=== PATIENT | female | born 1985 | race African-American/Black ===

== ENCOUNTER 2020-03-28 10:34 | Emergency (ER) | payer OTHER ==
[~2020-03-28] VITALS: Ht 167.6 cm; Wt 163.0 kg
[~2020-03-28 10:34] MED LIST: BACTRIM DS1 TAB PO; CIPROFLOXACN500 MG PO; DICLOFENAC SODI75 MG PO; FLAGYL500 MG PO; FLEXERIL OR; LORTAB 7.5-3251 TAB PO; MACRODANTIN100 MG OR; MOTRIN800 MG PO; NAPROSYN500 MG OR; NO HOME MEDS; PRENATAL1 TA1 PO; TORADOL OR; TRI-SPRINTEC OR; ULTRAM50 M1 PO; ZOFRAN ODT4 MG PO
[2020-03-28 11:20] LABS: URINE BILIRUBIN - DIPSTICK NEGATIVE (NEGATIVE); URINE BLOOD DIPSTICK NEGATIVE (NEGATIVE); URINE COLOR YELLOW; URINE GLUCOSE - DIPSTICK NEGATIVE (NEGATIVE); URINE KETONE NEGATIVE (NEGATIVE); URINE LEUK ESTERASE NEGATIVE (NEGATIVE); URINE NITRITE - DIPSTICK NEGATIVE (Negative); URINE PROTEIN - DIPSTICK NEGATIVE (NEG-TRACE); URINE UROBILINOGEN - DIPSTICK 0.2 E.U./dL (0.2)
[2020-03-28 11:38] LABS: HEMATOCRIT 36.3 % (37.0-47.0); HEMOGLOBIN 10.4 g/dl (12.0-16.0); IMMATURE GRANULOCYTES 0.2 % (0.0-5.0); MEAN CELL VOLUME 67.9 fL CALC (80.0-100.0); MEAN CORPUSCULAR HGB 19.4 pG CALC (26.0-32.0); MEAN CORPUSCULAR HGB CONC 28.7 g/dL CAL (32.0-36.0); NEUT# 4.81 thou/uL (2.00-7.15); RED BLOOD COUNT 5.35 mill/uL (4.20-5.60); RED CELL DISTRI WIDTH 19.9 % (11.5-15.5)
[2020-03-28 11:59] LABS: ALKALINE PHOSPHATASE 117 u/l (38-126); AMYLASE 60 u/l (30-110); BILIRUBIN, TOTAL 0.3 mg/dL (0.0-1.4); BUN 8 mg/dL (7-17); BUN/CREATININE RATIO 10 (12-20 (CALC)); CHLORIDE 106 mmol/l (95-108); CREATININE 0.8 mg/dL (0.5-1.0); GFR > 60 ML/MIN (>=60 (CALC)); GFR FOR AFR.AMER. > 60 ML/MIN (>=60 (CALC)); LIPASE 169 u/l (23-300); POTASSIUM 4.2 mmol/l (3.5-5.1); SGOT/AST 25 u/l (14-36); SODIUM 144 mmol/l (137-146); TOTAL PROTEIN 9.5 g/dL (6.3-8.2)
[2020-03-28 12:00] LABS: ALBUMIN 4.7 g/dL (3.2-5.0); ANION GAP 15 (6-22 (CALC)); CARBON DIOXIDE 27 mmol/l (22-30)
[2020-03-28] MEDS ORDERED: ONDANSETRON4 MG PO (13:19)
[2020-03-28 13:35] VITALS: BP 138/71
== END 2020-03-28 13:35 | disposition home or self-care (01) ==
LOC: ED 10:34
PROVIDERS: Emergency Medicine
DX: B34.9 Viral infection, unspecified (principal); Z20.822 Contact with and (suspected) exposure to COVID-19

== ENCOUNTER 2020-07-21 17:29 | Emergency (ER) | payer OTHER ==
[~2020-07-21 17:29] MED LIST changes: +ONDANSETRON4 MG PO
[2020-07-21 18:53] LABS: HEMATOCRIT 36.4 % (37.0-47.0); IMMATURE GRANULOCYTES 0.1 % (0.0-5.0); MEAN CELL VOLUME 74.3 fL CALC (80.0-100.0); MEAN CORPUSCULAR HGB 22.4 pG CALC (26.0-32.0); MEAN CORPUSCULAR HGB CONC 30.2 g/dL CAL (32.0-36.0); NEUT# 3.7 thou/uL (2.00-7.15); RED BLOOD COUNT 4.9 mill/uL (4.20-5.60); RED CELL DISTRI WIDTH 16.3 % (11.5-15.5)
[2020-07-21 19:05] LABS: ALBUMIN 4.3 g/dL (3.2-5.0); ALKALINE PHOSPHATASE 92 u/l (38-126); ANION GAP 11 (6-22 (CALC)); BILIRUBIN, TOTAL 0.4 mg/dL (0.0-1.4); BUN 9 mg/dL (7-17); BUN/CREATININE RATIO 10 (12-20 (CALC)); CARBON DIOXIDE 27 mmol/l (22-30); CHLORIDE 104 mmol/l (95-108); CREATININE 0.9 mg/dL (0.5-1.0); GFR > 60 ML/MIN (>=60 (CALC)); GFR FOR AFR.AMER. > 60 ML/MIN (>=60 (CALC)); POTASSIUM 3.6 mmol/l (3.5-5.1); SODIUM 138 mmol/l (137-146); TOTAL PROTEIN 8.4 g/dL (6.3-8.2)
[2020-07-21 19:06] LABS: SGOT/AST 169 u/l (14-36)
[2020-07-21 19:22] LABS: BETA-HCG, QUANT(RESULT NUMBER) <2 mIU/mL
[2020-07-21 20:44] LABS: URINE BILIRUBIN - DIPSTICK NEGATIVE (NEGATIVE); URINE BLOOD DIPSTICK LARGE (NEGATIVE); URINE GLUCOSE - DIPSTICK NEGATIVE (NEGATIVE); URINE KETONE NEGATIVE (NEGATIVE); URINE LEUK ESTERASE NEGATIVE (NEGATIVE); URINE PROTEIN - DIPSTICK 100 mg/dL (NEG-TRACE); URINE UROBILINOGEN - DIPSTICK 0.2 E.U./dL (0.2)
[2020-07-21 20:46] LABS: URINE NITRITE - DIPSTICK NEGATIVE (Negative)
[2020-07-21 20:47] LABS: URINE COLOR RED
[2020-07-21 20:48] LABS: URINE RBC >100 RBC/hpf (0-5); URINE SQUAMOUS EPITHELIAL CELL FEW EPI/hpf (0-FEW)
[2020-07-21 21:02] VITALS: BP 170/75
== END 2020-07-21 21:00 | disposition home or self-care (01) ==
LOC: ED 17:29
DX: N93.8 Other specified abnormal uterine and vaginal bleeding (principal)

== ENCOUNTER 2022-05-30 20:28 | Emergency (ER) | payer OTHER ==
[2022-05-30] VITALS (7 sets, daily range): BP systolic 75–160; BP diastolic 57–95
[~2022-05-30] VITALS: Ht 167.6 cm; Wt 161.4 kg
[2022-05-30 22:08] LABS: BASO% 0.4 % (0-3); EOS% 1.3 % (0-8); HEMATOCRIT 32.4 % (37.0-47.0); HEMOGLOBIN 9.3 g/dl (12.0-16.0); IMMATURE GRANULOCYTES 0.1 % (0.0-5.0); LYMPH% 30.2 % (15-41); MEAN CELL VOLUME 68.5 fL CALC (80.0-100.0); MEAN CORPUSCULAR HGB 19.7 pG CALC (26.0-32.0); MEAN CORPUSCULAR HGB CONC 28.7 g/dL CAL (32.0-36.0); MONO% 7.2 % (2-13); NEUT# 5.94 thou/uL (2.00-7.15); NEUT% 60.8 % (42-76); RED BLOOD COUNT 4.73 mill/uL (4.20-5.60); RED CELL DISTRI WIDTH 17.9 % (11.5-15.5)
[2022-05-30 22:18] LABS: ALBUMIN 4.4 g/dL (3.2-5.0); ALKALINE PHOSPHATASE 100 u/l (38-126); ANION GAP 11 (6-22 (CALC)); BUN 13 mg/dL (7-17); BUN/CREATININE RATIO 14 (12-20 (CALC)); CARBON DIOXIDE 30 mmol/l (22-30); CHLORIDE 102 mmol/l (95-108); CREATININE 0.9 mg/dL (0.5-1.0); GFR FOR AFR.AMER. > 60 ML/MIN (>=60 (CALC)); GFR OTHER RACES > 60 ML/MIN (>=60 (CALC)); LIPASE 154 u/l (23-300); POTASSIUM 3.9 mmol/l (3.5-5.1); SODIUM 139 mmol/l (137-146); TOTAL PROTEIN 8.8 g/dL (6.3-8.2)
[2022-05-30 22:20] LABS: BILIRUBIN, TOTAL 0.2 mg/dL (0.02-1.3); SGOT/AST 30 u/l (14-36)
[2022-05-30 22:26] LABS: D-DIMER 0.19 mg/L (0.19-0.60)
[2022-05-30 22:31] LABS: ACT PARTIAL THROMBO TIME 26.5 SECONDS (20.0-32.5); PROTHROMBIN TIME 10.2 SECONDS (9.0-12.5)
[2022-05-30] MEDS ORDERED: TORADOL PO (23:27)
== END 2022-05-30 23:39 | disposition home or self-care (01) ==
LOC: ED 20:28
PROVIDERS: Family Medicine
DX: R07.89 Other chest pain (principal)